=== PATIENT | male | born 1975 ===

== ENCOUNTER 2021-08-16 11:40 | Outpatient (CLI) | payer OTHER ==
--- NOTE | 2021-08-18 09:14 | MRI Report ---
PROCEDURE: Upper Arm/Humerus RT W/O INDICATIONS: RIGHT ARM PAIN TECHNIQUE: Noncontrast coronal and sagittal T1 spin echo and STIR; axial T1 spin echo and T2 fast spin echo with fat saturation through the right humerus. COMPARISON: None. FINDINGS: Image quality: Excellent. Bones: The visualized bone marrow demonstrates normal signal on all sequences. The overlying cortex appears intact. No fractures lines or intra-osseous lesions. Soft tissues: The lateral head portion of the proximal biceps myotendinous junction may be mildly di stally displaced, although no definite tendon tearing is visualized. The shoulder and elbow elbow str uctures are not well evaluated on this exam that is tailored for evaluation of the humerus. The scann ed muscles demonstrate normal overall bulk and internal signal. Subcutaneous tissues appear normal. No soft tissue masses are present. IMPRESSION: 1.No definite acute abnormality is seen within the upper arm. 2.Possible mild distal retraction of the long head portion of the proximal biceps myotendinous juncti on, which could be related to proximal biceps long head tendon injury that is not included in the fie ld-of-view of this exam. MRI of the shoulder could be obtained for further evaluation if this corresp onds with clinical signs and symptoms. Reviewed by: Trevon Kelly MD on 08/18/2021 9:12 AM PDT Approved by: Trevon Kelly MD on 08/18/2021 9:12 AM PDT Station ID: [id number]
== END 2021-08-16 11:41 | disposition home or self-care (01) ==
LOC: DI 11:40
PROVIDERS: ATTEND Student in an Organized Health Care Education/Training Program
DX: M79.601 Pain in right arm (principal)